=== PATIENT | female | born 1980 | race Caucasian/White ===

== ENCOUNTER 2019-04-23 12:44 | Emergency (ER) | payer OTHER, SELFPAY ==
[2019-04-08 13:14] VITALS: BMI 35.0
[2019-04-23 12:47] VITALS: BP 124/94; PULSE 91; RESP 17; TEMP 36.2; O2SAT 96; BMI 34.8
--- NOTE | 2019-04-23 13:39 | CT_ITS ---
STUDY: CT BRAIN WITHOUT CONTRAST REASON FOR EXAM: Female, 39 years old. Weakness, hx of ti x 1 month ago RADIATION DOSAGE (If Supplied By Facility): CTDIvol = ( 44.99 ) mGy, DLP = ( 762.36 ) mGycm TECHNIQUE: Transaxial CT imaging of the brain was performed without administration of intravenous contrast material. Individualized dose optimization techniques were used for this CT. COMPARISON: No relevant priors. FINDINGS: Normal soft tissue structures. Normal calvarium. Normal size ventricles and extra-axial spaces for the patient''s age. Normal white matter tracts of the cerebral hemispheres. Normal basal ganglia and thalami. Normal brainstem. Normal cerebellum. There is no intracranial hemorrhage. There are no findings of an acute ischemic infarction. Mucosal thickening of the ethmoid sinuses. CT/Brain/Head without Contrast IMPRESSION: Normal unenhanced CT scan of the brain. Mucosal thickening of the ethmoid sinuses. Electronically Signed: Maurizio King, at 14:51 EDT , Service support ,
--- NOTE | 2019-04-23 13:39 | EKG12_ITS ---
Test Reason : GENERAL ILLNESS Blood Pressure : / mmHG Vent. Rate : 073 BPM Atrial Rate : 073 BPM P-R Int : 132 ms QRS Dur : 084 ms QT Int : 380 ms P-R-T Axes : 037 001 039 degrees QTc Int : 418 ms Normal sinus rhythm Normal ECG Confirmed by CYN LUCIO, ADORE ([id number]), international editorial producer SHAYNA MORLEY ([id number]) on 04/25/2019 1:02:26 PM Referred By: EDDIE Confirmed By:KENNETH ADDISON MD
[2019-04-23 13:59] LABS: Absolute Lymphocyte Count 1.82 X10^3/uL (0.83-4.51); Absolute Neutrophil Count 3.3 X10^3/uL (2.0-7.7); Basophil# 0.04 X10^3/uL; Basophil% 0.7 % (0-1); Eosinophil# 0.28 X10^3/uL; Eosinophils% 4.8 % (0-5); Hematocrit 43.6 % (37-47); Hemoglobin 14.2 g/dL (12.0-15.0); Lymphocyte # 1.82 X10^3/ul (4.0); Lymphocyte % 31.5 % (19-41); Mean Corp Hgb Conc 32.6 g/dL (32-36); Mean Corpuscular Hgb 29.4 pg (27.0-32.0); Mean Corpuscular Volume 90.3 fL (81-99); Mean Platelet Vol. 9.6 fl (6.2-12.0); Monocyte# 0.36 X10^3/uL; Monocyte% 6.2 % (0-10); NRBC Flagged by Analyzer 0 % (0-5); Neutrophil # 3.26 X10^3/uL (2.7-7.7); Neutrophil % 56.5 % (47-70); Platelet Count 249 K/mm3 (150-450); RBC Distribution Width CV 12.4 % (11.6-14.6); RBC Distribution Width SD 40.7 fl (35.1-43.9); Red Blood Count 4.83 M/mm3 (4.2-5.4); White Blood Count 5.8 K/mm3 (4.4-11.0)
[2019-04-23 14:08] LABS: International Normalized Ratio 0.9; Prothrombin Time (Protime)PT. 12.1 SECONDS (11.7-14.9)
[2019-04-23 14:09] LABS: Internal QC Validated? YES +Cl - CLEAR BKGD; Pregnancy, Serum, hCG Quali. NEGATIVE Negative
[2019-04-23] MEDS: fentaNYL 100 MCG/2 ML Ampul 50 MCG IV (14:23)
[2019-04-23 14:24] LABS: Anion Gap 5 (5-15); BUN 13 mg/dL (7-18); Chloride 108 mmol/L (98-107); Creatinine, Serum 0.81 mg/dL (0.55-1.02); EST Glomerular Filtration Rate 84 mL/min (>60); Est Glom Filt Rate - Afr Amer 102 mL/min (>60); Estimated Creatinine Clearance 82.12 ml/min; Glucose 93 mg/dL (74-106); Potassium 3.7 mmol/L (3.5-5.1); Sodium Level 141 mmol/L (136-145); Thyroid Stim Hormone (TSH) 0.66 uIU/mL (0.358-3.74)
[2019-04-23 14:25] LABS: Bedside Glucose 93 mg/dL (70-110)
--- NOTE | 2019-04-23 14:52 | RAD_ITS ---
STUDY: X-RAY CHEST REASON FOR EXAM: Female, 39 years old. CHEST PAIN TECHNIQUE: Single AP portable view of the chest. COMPARISON: None. FINDINGS: EKG electrodes are seen. The lungs are clear and expanded. There is no demonstrated pleural abnormality. Normal size heart. Normal mediastinum and tulio. Normal visualized pulmonary arteries. Normal visualized aortic arch and descending thoracic aorta. Normal visualized thoracic spine. Normal visualized ribs, clavicles, and shoulders. There is no demonstrated abnormality of the visualized soft tissue structures of the upper abdomen. RAD/Chest 1 View IMPRESSION: Normal x-ray examination of the chest. Electronically Signed: Maurizio King, at 15:09 EDT , Service support ,
[2019-04-23 14:57] LABS: Partial Thromboplast Time 26.3 Seconds (24.1-36.2)
[2019-04-23 15:08] VITALS: BP 132/96; PULSE 65; RESP 16; O2SAT 95
--- NOTE | 2019-04-23 15:24 | ED.DCSUM_ITS ---
- ER Visit Summary Date of Service: 04/23/19 Chief Complaint: Pain History of Present Illness: The patient is a 39 F with head neck and jaw pain that started this morning. Nothing seemed to bring on or make it worse. Nothing seems to make it better. Associated with tingling in her bilateral hands. Denies any other neurologic symptoms, weakness, numbness, speech changes, vision changes, or facial droop. Patient has a history of TIA and takes aspirin daily. She had speech difficulties then. She is not having any of those issues today. History of asthma, hypertension, hyperlipidemia, pneumonia, headaches. Former smoker. Physical Examination: Afebrile and vital signs unremarkable. Head and neck inspection normal. HEENT exam normal. Cranial nerves grossly intact. Neck nontender. Heart regular. Lungs clear. Abdomen soft. Extremities nontender with no edema. Normal strength and sensation. Normal cerebellar testing. Test Results: EKG shows sinus rhythm at a rate of 73. CBC normal. BMP unremarkable. Coags, troponin, hCG unremarkable. TSH normal. Chest x-ray normal. CT brain normal. Emergency Department Course and Treatment: Patient has a history of TIA. She has no stroke symptoms today. No focal abnormalities. All of her symptoms are positive findings including pain and paresthesias. No weakness or numbness or other loss of function. I do not believe this is a stroke. Because of her history, I did obtain a work-up. This was reassuring. Vital signs are reassuring. Exam is reassuring. Patient will be discharged for outpatient follow-up. Return for any new or worsening issues. Treatment Plan: As above Disposition: Discharge Impression: Cephalgia This note was generated with [employer] dictation software. It may contain incorrect words, spelling, and punctuation that were not noted in review of the chart prior to signing ED Disposition - Plan for ED Patient: Referrals: Mason Gillis MD [Primary Care Provider] -
--- NOTE | 2019-04-23 15:27 | ED.DEP ---
ED Disposition - Plan for ED Patient: Instructions: HEADACHE, Unspecified Referrals: Mason Gillis MD [Primary Care Provider] -
[2019-04-23] MEDS: Ketorolac 30 MG/ML Syringe IV (15:58)
[2019-04-23 16:00] VITALS: BP 124/93; PULSE 53; RESP 12; O2SAT 977
== END 2019-04-23 16:13 | disposition home or self-care (01) ==
LOC: ED 13:49
PROVIDERS: Emergency Provider Emergency Medicine; PCP Internal Medicine
DX: R51 Headache (principal); I10 Essential (primary) hypertension; E78.5 Hyperlipidemia, unspecified; J45.909 Unspecified asthma, uncomplicated; Z79.82 Long term (current) use of aspirin; Z87.891 Personal history of nicotine dependence; Z86.73 Personal history of transient ischemic attack (TIA), and cerebral infarction without residual deficits
CPT/HCPCS: 70450; 71045; 80048; 82962; 84443; 84484; 84703; 85025; 85610; 85730; 93005; 96374; 96375; 99284; A4216

== ENCOUNTER → 2019-07-23 12:27 | Outpatient (CLI) | payer OTHER, SELFPAY ==
[2019-07-23 12:19] VITALS: BMI 34.8
--- NOTE | 2019-07-23 12:28 | RAD_ITS ---
STUDY: X-RAY - LUMBAR SPINE REASON FOR EXAM: Female, 39 years old. Pain, NKI, radiating into left hip, sometimes right TECHNIQUE: 5 view(s) of the lumbar spine were obtained including oblique views. COMPARISON: None FINDINGS: Normal lumbar lordosis. There is no substantial scoliosis. There is a normal alignment of the vertebrae. Normal vertebral bodies and endplates. Normal disc space heights. The soft tissue structures are unremarkable. RAD/L/S Spine Min 4 Views IMPRESSION: Normal x-ray examination of the lumbar spine. Electronically Signed: Maurizio King, at 12:54 EDT , Service support ,
== END ==
PROVIDERS: PCP Internal Medicine; Referring Provider Physician Assistant; Visit Provider Physician Assistant
DX: M54.5 Low back pain (principal)
CPT/HCPCS: 72110

== ENCOUNTER 2019-07-30 17:34 | Emergency (ER) | payer OTHER, SELFPAY ==
[2019-07-23 12:19] VITALS: BMI 34.8
[2019-07-30 17:35] VITALS: BP 143/91; PULSE 78; RESP 16; TEMP 36.3; O2SAT 97; BMI 34.3
[2019-07-30] MEDS: 0.9% Normal Saline 1,000 ML 1000 ML IV (18:09)
[2019-07-30 18:21] LABS: Absolute Lymphocyte Count 2.04 X10^3/uL (0.83-4.51); Absolute Neutrophil Count 3.5 X10^3/uL (2.0-7.7); Basophil# 0.03 X10^3/uL; Basophil% 0.5 % (0-1); Eosinophil# 0.29 X10^3/uL; Eosinophils% 4.6 % (0-5); Hemoglobin 12.6 g/dL (12.0-15.0); Lymphocyte # 2.04 X10^3/ul (4.0); Lymphocyte % 32.1 % (19-41); Mean Corp Hgb Conc 33.2 g/dL (32-36); Mean Corpuscular Hgb 30.6 pg (27.0-32.0); Mean Corpuscular Volume 92.2 fL (81-99); Mean Platelet Vol. 9.7 fl (6.2-12.0); Monocyte# 0.49 X10^3/uL; Monocyte% 7.7 % (0-10); NRBC Flagged by Analyzer 0 % (0-5); Neutrophil # 3.48 X10^3/uL (2.7-7.7); Neutrophil % 54.8 % (47-70); Platelet Count 248 K/mm3 (150-450); RBC Distribution Width CV 12.8 % (11.6-14.6); RBC Distribution Width SD 43.2 fl (35.1-43.9); Red Blood Count 4.12 M/mm3 (4.2-5.4); White Blood Count 6.4 K/mm3 (4.4-11.0)
[2019-07-30 18:36] LABS: ALB/GLOB Ratio 0.9 RATIO (0.9-2.4); AST(SGOT) 17 U/L (15-37); Alanine Aminotransfer ALT/SGPT 35 U/L (13-56); Albumin, Serum 3.3 g/dL (3.2-5.0); Alkaline Phosphatase 108 U/L (45-117); Anion Gap 4 (5-15); BUN 13 mg/dL (7-18); BUN/Creat Ratio 14.9 RATIO (10-20); Chloride 108 mmol/L (98-107); Creatinine, Serum 0.87 mg/dL (0.55-1.02); EST Glomerular Filtration Rate 78 mL/min (>60); Est Glom Filt Rate - Afr Amer 94 mL/min (>60); Estimated Creatinine Clearance 76.45 ml/min; Globulin 3.6 g/dL (2.2-4.2); Glucose 110 mg/dL (74-106); Lipase 96 U/L (73-393); Potassium 3.5 mmol/L (3.5-5.1); Protein, Total 6.9 g/dL (6.4-8.2); Sodium Level 141 mmol/L (136-145)
--- NOTE | 2019-07-30 18:52 | US_ITS ---
STUDY: ABDOMINAL ULTRASOUND - RIGHT UPPER QUADRANT REASON FOR VISIT: Female, 39 years old RUQ PAIN TECHNIQUE: Ultrasound evaluation of the right upper quadrant was performed with real-time and static carrillo-scale imaging. TECHNICAL QUALITY: Adequate. COMPARISON: None. FINDINGS: Liver: The liver measures 18.3 cm. There is increased echogenicity consistent with fatty infiltration. The bile ducts are within normal limits. There is hepatic color flow. The direction of portal flow is hepatopetal. There is no demonstrated mass lesion. Gallbladder: There is a contracted gallbladder. The gallbladder wall measures 4 mm. There is a positive sonographic Perez''s sign. There is no pericholecystic fluid. There are no gallstones. Common Bile Duct (C.B.D.): The common bile duct measures 4 mm. Pancreas: Normal size of the head, body and tail of the pancreas. There is normal echogenicity of the pancreas. There is no demonstrated pancreatic mass or cyst. Right Kidney: Normal size of the right kidney. The right kidney measures 10.5 x 5.2 x 4.4 cm. Normal renal cortex. The right cortex measures 1.8 cm. There is no demonstrated renal mass or cyst. There is no right hydronephrosis. US/Gallbladder IMPRESSION: Contracted gallbladder. There is no evidence of cholelithiasis or pericholecystic fluid. A positive Perez sign was elicited as per avionics systems technician. There is increased hepatic echogenicity suggestive of steatosis. Electronically Signed: Ger Taylor MD at 19:33 EDT , Service support ,
--- NOTE | 2019-07-30 18:55 | ED.VIS.GEN ---
History of Present Illness Chief Complaint: Abd Pain Detail of Chief Complaint: Upper quadrant abdominal pain and diarrhea Informant: Patient Onset: Days Context: Sudden Onset Timing: Continuous Quality: Right upper quadrant pain with pleuritic component and diarrhea Location: Right upper quadrant Current Severity: Mild Maximum Severity: Moderate Worsened by: Breathing Relieved by: Nothing Associated Symptoms: Diarrhea Narrative: Patient 39-year-old woman who presents with right upper quadrant pain that radiates into her back. Equivocal intolerance to greasy or fried foods. She states she had ultrasound of her gallbladder 3 years ago; however, the gallbladder was contracted and ultrasound was inconclusive. She reports 5 loose stools on Sunday. She had several loose stools since Sunday. No blood or mucus. No history of inflammatory bowel disorder. There is a family history of ulcerative colitis. She does report nausea without vomiting. She denies cough, shortness of breath or difficulty breathing. She denies history of VTE. She denies leg pain, swelling discoloration. She denies dysuria, frequency, urgency or hematuria. She denies upper respiratory symptoms. She denies fever or chills. Prior similar symptoms: Yes Recent Illness/Hospitalization: No - Past Medical History (1) Allergies Status: Chronic (2) Asthma Status: Chronic (3) Cervicogenic migraine Status: Chronic (4) High blood pressure Status: Chronic (5) High cholesterol Status: Chronic (6) Hormone deficiency Status: Chronic (7) Vitamin D deficiency Status: Chronic Past Medical History - Allergies and Home Meds Allergies/Adverse Reactions: Allergies No Known Allergies Allergy (Verified 07/23/19 12:12) Primary Care Physician: Mason Gillis MD [Primary Care Provider] - Prior records reviewed: Yes Surgical History: noncontributory Lives: Spouse/ Significant Other, With Family Smoking Status: Former smoker Alcohol: Rare Drugs: None Review of Systems General: Denies: Chills, Fever, Sweats Eyes: Denies: Visual changes - bilaterally, Blurred Vision - bilaterally ENT: Denies: Bilateral ear pain, Rhinorrhea, Sore throat Cardiovascular: Denies: Chest pain, Palpitations Respiratory: Denies: Dyspnea, Cough, Dyspnea on exertion Gastrointestinal: Reports: Abdominal pain, Nausea, Diarrhea. Denies: Vomiting, Constipation, Melena, Hematochezia, -, - Genitourinary: Denies: Dysuria, Hematuria, Frequency Musculoskeletal: Reports: Back pain. Denies: Myalgias, Arthralgias, Neck pain, Swelling, Extremity Pain Skin: Denies: Rash, Wounds Neurological: Denies: Headache, Weakness, Numbness Hematologic: Denies: Easy bruising, Easy bleeding Physical Exam Vital Signs/Narrative: Vital Signs Temp Pulse Resp BP Pulse Ox 07/30/19 17:35 97.3 F L 78 16 143/91 H 97 Inital Vital Signs reviewed: Yes General: Well nourished, Well developed, No Acute Distress Head: Normocephalic, Atraumatic Eyes: Perrl, EOMI ENT: Moist mucous membranes, No rhinorrhea Neck: Supple, Nontender Cardiovascular: Regular rate, Regular rhythm, No murmurs Respiratory: No distress, CTA bilaterally, Chest nontender Abdomen: Soft, Nondistended, Normal bowel sounds, No masses, Tender, Guarding, Perez's sign Rectal: Deferred Back: Nontender, Normal Inspection. Negative for: CVA tenderness Extremities: Nontender, No edema, - - There is no asymmetry, swelling, discoloration, leg vein distention, palpable cords or tenderness along the distribution of the deep venous system. Skin: Normal color, No rash Neurological: Alert, Oriented x3, Cranial nerves II-XII grossly intact, Normal Strength, Normal Sensation Psychological: Normal affect, Normal Mood Diagnostic/Tx/Re-eval Impressions Gallbladder Ultrasound 07/30/19 18:52 IMPRESSION: Contracted gallbladder. There is no evidence of cholelithiasis or pericholecystic fluid. A positive Perez sign was elicited as per food equipment service technician. There is increased hepatic echogenicity suggestive of steatosis. Electronically Signed: Ger Taylor MD at 19:33 EDT , Service support , 07/30/19 18:52 US Gallbladder [Gallbladder] [US] Stat Laboratory Results 07/30/19 07/30/19 18:05 18:05 WBC 6.4 RBC 4.12 L Hgb 12.6 Hct 38.0 MCV 92.2 MCH 30.6 MCHC 33.2 RDW Std Deviation 43.2 RDW Coeff of Daniel 12.8 Plt Count 248 MPV 9.7 Immature Gran % (Auto) 0.300 Neut % (Auto) 54.8 Lymph % (Auto) 32.1 [place] % (Auto) 7.7 Eos % (Auto) 4.6 Baso % (Auto) 0.5 Absolute Neuts (auto) 3.5 Absolute Lymphs (auto) 2.04 Nucleated RBC % 0 Sodium 141 Potassium 3.5 Chloride 108 H Carbon Dioxide 29.0 Anion Gap 4 L BUN 13 Creatinine 0.87 Estim Creat Clear Calc 76.45 Est GFR (MDRD) Af Amer 94 Est GFR (MDRD) Non-Af 78 BUN/Creatinine Ratio 14.9 Glucose 110 H Calcium 9.0 Total Bilirubin 0.30 AST 17 ALT 35 Alkaline Phosphatase 108 Total Protein 6.9 Albumin 3.3 Globulin 3.6 Albumin/Globulin Ratio 0.9 Lipase 96 Patient was informed of her results. She is not had any diarrhea during her stay. Plan is to discharge with appropriate home-going instructions. - Medical Decision Making Right upper quadrant pain radiating to the back differential diagnosis would include biliary colic, cholelithiasis, cholecystitis, obstructing ureteral stone. With complaint of diarrhea need to rule out infectious etiology versus inflammatory etiology. Patient was informed of her lab results. On reexamination she is still has significant tenderness right upper quadrant with a clinical Perez sign. Therefore will obtain ultrasound the gallbladder. Patient was ordered pain medicine, which she declined. ED Disposition - Plan for ED Patient: Disposition: Home or Assisted Living Diagnosis: Right upper quadrant abdominal pain, Diarrhea, Mild dehydration Instructions: ED Vomiting and Diarrhea Nonspecific Adult Referrals: Mason Gillis MD [Primary Care Provider] - 3-5 Days if not improving
[2019-07-30 20:09] VITALS: BP 144/81; PULSE 60; RESP 17; O2SAT 97
== END 2019-07-30 20:09 | disposition home or self-care (01) ==
PROVIDERS: Emergency Provider Emergency Medicine; PCP Internal Medicine
DX: R10.11 Right upper quadrant pain (principal); R19.7 Diarrhea, unspecified; E86.0 Dehydration; I10 Essential (primary) hypertension; J45.909 Unspecified asthma, uncomplicated; Z87.891 Personal history of nicotine dependence
CPT/HCPCS: 76705; 80053; 83690; 85025; 99283

== ENCOUNTER → 2019-09-05 | Outpatient (CLI) | payer OTHER, SELFPAY | END | disposition home or self-care (01) | LOC: LABSPEC 17:36 | PROVIDERS: PCP Internal Medicine; Referring Provider Physician Assistant Surgical; Visit Provider Physician Assistant Surgical | DX: Z20.828 Contact with and (suspected) exposure to other viral communicable diseases (principal) | CPT/HCPCS: 87635; 94799; U0003 ==

== ENCOUNTER → 2022-08-14 | Outpatient (CLI) | payer OTHER, SELFPAY ==
[2022-08-14 12:26] LABS: Absolute Lymphocyte Count 2.18 X10^3/uL (0.83-4.51); Absolute Neutrophil Count 4.2 X10^3/uL (2.0-7.7); Basophil# 0.05 X10^3/uL; Basophil% 0.7 % (0-1); Eosinophil# 0.28 X10^3/uL; Eosinophils% 3.9 % (0-5); Hematocrit 40.2 % (37-47); Lymphocyte # 2.18 X10^3/ul (0.83-4.51); Lymphocyte % 30.2 % (19-41); Mean Corp Hgb Conc 32.3 g/dL (32-36); Mean Corpuscular Hgb 30.4 pg (27.0-32.0); Mean Corpuscular Volume 93.9 fL (81-99); Mean Platelet Vol. 11.5 fl (6.2-12.0); Monocyte# 0.51 X10^3/uL; Monocyte% 7.1 % (0-10); NRBC Flagged by Analyzer 0 % (0-5); Neutrophil # 4.18 X10^3/uL (2.7-7.7); Neutrophil % 57.8 % (47-70); Platelet Count 275 K/mm3 (150-450); RBC Distribution Width CV 13.1 % (11.6-14.6); Red Blood Count 4.28 M/mm3 (4.2-5.4); White Blood Count 7.2 K/mm3 (4.4-11.0)
[2022-08-14 12:44] LABS: ALB/GLOB Ratio 1.3 RATIO (0.9-2.4); AST(SGOT) 16 U/L (15-37); Alanine Aminotransfer ALT/SGPT 21 U/L (13-56); Albumin, Serum 3.9 g/dL (3.2-5.0); Alkaline Phosphatase 73 U/L (45-117); Anion Gap 5 (5-15); BUN 10 mg/dL (7-18); BUN/Creat Ratio 10.4 RATIO (10-20); Calcium,Total 9.3 mg/dL (8.5-10.1); Chloride 109 mmol/L (98-107); Creatinine, Serum 0.96 mg/dL (0.55-1.02); EST Glomerular Filtration Rate 69 mL/min (>60); Est Glom Filt Rate - Afr Amer 83 mL/min (>60); Globulin 3.1 g/dL (2.2-4.2); Glucose 92 mg/dL (74-106); Potassium 3.3 mmol/L (3.5-5.1); Sodium Level 142 mmol/L (136-145); Troponin-I HS 4 pg/mL (3.0-54.0)
== END | disposition home or self-care (01) ==
LOC: BIMLAB 10:05
PROVIDERS: PCP Internal Medicine; Referring Provider Internal Medicine; Visit Provider Internal Medicine
DX: R10.10 Upper abdominal pain, unspecified (principal)
CPT/HCPCS: 36415; 80053; 84484; 85025

== ENCOUNTER → 2022-08-22 | Outpatient (CLI) | payer OTHER, SELFPAY ==
--- NOTE | 2022-08-22 08:39 | US_ITS ---
STUDY: ABDOMINAL ULTRASOUND - RIGHT UPPER QUADRANT REASON FOR VISIT: Female, 42 years old abdominal pain, positive Perez''s sign on exam TECHNIQUE: Ultrasound evaluation of the right upper quadrant was performed with real-time and static carrillo-scale imaging. TECHNICAL QUALITY: Adequate. COMPARISON: Comparison is made with prior study dated July 30, 2019. FINDINGS: Liver: The liver measures 16 cm. There is increased echogenicity consistent with fatty infiltration. The bile ducts are within normal limits. There is hepatic color flow. The direction of portal flow is hepatopetal. There is no demonstrated mass lesion. Gallbladder: Normal distended gallbladder. The gallbladder wall measures 1.5 mm. There is a negative sonographic Perez''s sign. There is no pericholecystic fluid. There are no gallstones. Common Bile Duct (C.B.D.): The common bile duct measures 3.6 mm. Pancreas: Normal size of the head, body of the pancreas. The tail portion is obscured due to overlying bowel gas. There is normal echogenicity of the pancreas. There is no demonstrated pancreatic mass or cyst. Right Kidney: Normal size of the right kidney. The right kidney measures 10.4 cm x 5.7 cm x 4.9 cm. Normal renal cortex. The right cortex measures 1.8 cm. There is no demonstrated renal mass or cyst. There is no right hydronephrosis. US/Liver IMPRESSION: Fatty infiltration of the liver. Electronically Signed: Maurizio King MD at 10:16 EDT ,
== END | disposition home or self-care (01) ==
PROVIDERS: PCP Internal Medicine; Referring Provider Internal Medicine; Visit Provider Internal Medicine
DX: R10.10 Upper abdominal pain, unspecified (principal)
CPT/HCPCS: 76705

== ENCOUNTER 2022-10-02 09:20 | Day surgery (SDC) | payer OTHER, SELFPAY ==
[2022-10-02 09:56] VITALS: BP 140/91; PULSE 77; RESP 16; TEMP 36.8; O2SAT 97; BMI 28.6
--- NOTE | 2022-10-02 10:06 | H&P.OPEN ---
HPI - General General Date of Service: 10/02/22 HPI Narrative SARAN BARILLAS, is a 42 F who presents patient states her reflux did improve she noticed that one of the flavors that she was vaping caused the reflux. Patient did take Carafate for a month states that the symptoms are better not completely gone still on the pantoprazole. Patient does take Dulcolax about every other day or so for the constipation. She also did check her fiber in her diet and it was low she does have the fiber Gummies ordered. Patient does drink plenty of water. office visit 08/29/22 HPI HPI: 42-year-old female presents due to abdominal pain and constipation. Patient states back in March she did 3 doses of Ozempic patient did have lots of nausea and vomiting with this. Ever since patient states that she is had abdominal pain, and periumbilical to epigastric left upper quadrant greater than right upper quadrant. Patient has tried to change her diet avoiding gluten with no change. Patient denies any change in the pain with after eating or during eating. Patient states she is really not that hungry but does eat 2 meals a day. Patient states that she has a history of constipation but she can go about a week without having a bowel movement even though she is taking a daily natural laxative. Patient denies reflux in her esophagus. Patient is nauseous in the morning before ever eating. Patient also states she lost 40 pounds unintentional through this. Likely due to nausea and vomiting abdominal pain. [facility] Medical History (Updated 09/28/22 @ 10:50 by Greer Pagan) Allergies Anemia Anxiety Asthma Back pain Back problem Bloody stool Chronic constipation Fatigue Fatty liver Former smoker Frequent headaches Gastric reflux High blood pressure High cholesterol Hormone deficiency Hypertension Injury of head and neck Limb weakness migrainious stroke Pneumonia PONV (postoperative nausea and vomiting) Severe headache Shoulder pain SOB (shortness of breath) TIA (transient ischemic attack) Vitamin D deficiency Home Medications amlodipine 5 mg tablet 5 mg PO DAILY #90 tabs 08/22/21 [Rx Last Taken Unknown] montelukast 10 mg tablet (Singulair) 10 mg PO DAILY #90 tabs 08/22/21 [Rx Last Taken Unknown] ondansetron 4 mg disintegrating tablet 4 mg PO Q8H PRN nausea and vomiting #20 tabs 08/14/22 [Rx Last Taken Unknown] potassium chloride 20 mEq tablet,extended release(part/cryst) 40 meq (2 x 20 mEq) PO ONCE #2 tabs 08/14/22 [Rx Last Taken Unknown] sucralfate 1 gram tablet 1 g PO QACHS #56 tabs 08/29/22 [Rx Last Taken Unknown] albuterol sulfate 90 mcg/actuation aerosol inhaler (ProAir HFA) 1 - 2 puff inhalation Q6H PRN shortness of breath or wheezing #8.5 grams 08/30/22 [Rx Last Taken Unknown] fluticasone 500 mcg-salmeterol 50 mcg/dose blistr powdr for inhalation (Advair Diskus) 1 inh inhalation BID #60 ea 08/30/22 [Rx Last Taken 10/02/22] cyclobenzaprine 10 mg tablet 5 - 10 mg (0.5 - 1 x 10 mg) PO TID PRN muscle spasm #30 tabs 09/08/22 [Rx Last Taken Unknown] duloxetine 40 mg capsule,delayed release 40 mg PO DAILY #30 caps 09/12/22 [Rx Last Taken Unknown] pantoprazole 40 mg tablet,delayed release (Protonix) 40 mg PO QHS 09/28/22 [History Last Taken Unknown] Allergy/AdvReac Type Severity Reaction Status Date / Time No Known Allergies Allergy Verified 09/28/22 10:36 Family History Father Alcoholism Liver disease Uncle Alcoholism Mother Anemia Anesthesia complication Anxiety Depression Heart disease Hypertension Liver disease Thyroid disorder Aunt AUTO M Autoimmune disease Breast cancer Diabetes Grandmother Anemia Anxiety Blood clot in vein Myocardial infarction Heart disease Hypertension High cholesterol CVA (cerebral vascular accident) Grandfather Anesthesia complication Angina pectoris Myocardial infarction Heart disease Hypertension High cholesterol Skin cancer Other Alzheimer's dementia Cirrhosis of liver Liver cancer Surgical History history Lap abdomen History of appendectomy History of History of hysterectomy History of tonsillectomy History of tubal ligation Social History Smoking Status: Former smoker alcohol intake: current Alcohol type: beer and hard liquor details: socially substance use type: does not use what type of physical activity do you participate in: other details: Cardio frequency: 3-4 times per week Past Medical/Surgical History Planned Operation Planned Operative Procedure/s: COLONOSCOPY, EGD Previous Hospitalizations/Surgeries HX Hospitalizations: No Any Problems With Anesthesia: Yes (PONV AFTER HYSTER) You/Your Family Experience Fever (Hyperthermia) With Anes: No Cholinesterase deficiency: No Cardiovascular Hx Hypertension: Yes Respiratory Hx Asthma: Yes Hx Sleep Apnea: No Hx Respiratory Tract Infection/Cold (presently): No Do You Snore Loudly (louder than talking or can be heard): No Do You Often Feel Tired/ Fatigued/ Sleepy Dring Daytime?: No Has Anyone Observed You Stop Breathing During Sleep?: No Result (for STOP score): Negative Smoking Status: Former smoker Neurological Hx Transient Ischemic Attacks (TIA): Yes Does patient have nerve stimulator: No Reproduction : No Miscellaneous Recent Exposure to Contagious Disease: No Allergies No Known Allergies Allergy (Verified 09/28/22 10:36) Discharge Is Pt Admitted From a Long-Term, or a Penitentiary: No Who Could Help: FRIEND After D/C, Where Do you Plan to Go: Return Home Vital Signs Vital Signs Vital Signs: 10/02/22 09:56 10/02/22 09:56 Temperature 98.3 F Temperature Source Temporal Pulse Rate 77 Respiratory Rate 16 Respiratory Pattern Normal Blood Pressure 140/91 H Blood Pressure Mean 107 Blood Pressure Source Monitor Blood Pressure Position Semi-Fowlers Blood Pressure Location Right Arm Pulse Ox 97 Oxygen Delivery Method Room Air Weight Weight: 167 lb 1.766 oz Body Mass Index (BMI) 28.6 Physical Exam Const alert, oriented x3 and no apparent distress HEENT normocephalic and head/scalp atraumatic Resp normal respiratory effort Cardio regular rate GI soft to palpation and non-tender; Negative for non-distended Palpation: Negative for guarding Extremity no clubbing, cyanosis or edema Neuro CN's II-XII intact bilaterally Psych mental status grossly normal Assessment & Plan Assessment/Plan (1) LUQ abdominal pain: (2) Epigastric pain: (3) Constipation: (4) Weight loss, non-intentional: Surgery Risks - Colonoscopy I discussed with the patient the risks of the procedure: Yes Risks Include but are not Limited To: Risks include but are not limited to: Bleeding, perforation requiring further surgery, inability to complete colonoscopy requiring barium enema.
[2022-10-02] MEDS: Lactated Ringers 1,000 ML 15 ML IV (10:08)
--- NOTE | 2022-10-02 10:30 | EGD_PTH ---
PATIENT: SARAN BARILLAS LOC: EN U#:[id number] AGE/SX: 42/F ROOM: RE10/02/[address]: Dr. Jerrica Alvarado MD : 1980 BED: DIS: 10/02/2022 SPEC #: [id number] RECD: 10/02/22 12:59 STATUS: JESSIKA REDaniel #: [id number] NATHAN: 10/02/22 10:[address]: Jerrica Alvarado DEPT: SURGICAL PATHOLOGY RECD BY: Ania Pack ENTERED: 10/02/22 13:22 SP TYPE: EGD BIOPSY OT DR: Dr. Mason Gillis MD Tissues: A - Gastric mucous membrane B - Esophagus, NOS Procedures: Special Stain Group II Surgery Specimen Level IV Alcian Blue/PAS (control) HEADER OPERATION: Colonoscopy, EGD with biopsy PRE-OP DIAGNOSIS: LUQ pain, epigastric pain, constipation, weight loss TISSUE SUBMITTED: A - Antrum biopsy for H. pylori and histology, B - Gastroesophageal junction biopsy MICROSCOPIC DIAGNOSIS A. Gastric antrum, biopsy: Chronic gastritis. See comment. B. Gastroesophageal junction, biopsy: Chronic inflammation. Focal changes of reflux. No evidence of goblet cell metaplasia. See comment. KALLI:pat 10/03/2022 COMMENT A. The results of immunohistochemistry for Helicobacter pylori will be reported separately ([id number]). B. Alcian blue/PAS stain with matched control supports the above diagnosis. MICROSCOPIC DESCRIPTION Slides are reviewed. GROSS DESCRIPTION A - Received in fixative is one container labeled with the patient's name and designated antrum. The specimen consists of two irregular fragments of light mohan soft tissue that in aggregate measure 0.6 x 0.3 x 0.1 cm. The specimen is totally submitted in one cassette. B - Received in fixative is one container labeled with the patient's name and designated GE junction. The specimen consists of one irregular fragment of light mohan soft tissue that measures 0.5 x 0.3 x 0.1 cm. The specimen is totally submitted in one cassette. / AM:pat 10/02/2022 TC:3 CPT: 98434 x2, 54846
--- NOTE | 2022-10-02 10:30 | IMM_PTH ---
PATIENT: SARAN BARILLAS LOC: EN U#:[id number] AGE/SX: 42/F ROOM: RE10/02/[address]: Dr. Jerrica Alvarado MD : 1980 BED: DIS: 10/02/2022 SPEC #: [id number] RECD: 10/02/22 13:53 STATUS: JESSIKA REQ #: [id number] NATHAN: 10/02/22 10:[address]: Jerrica Alvarado DEPT: IMMUNOHISTOCHEMISTRY RECD BY: Asya Bradford ENTERED: 10/02/22 13:54 SP TYPE: IMMUNO OTHR DR: Dr. Mason Gillis MD Tissues: A - Stomach, NOS Procedures: H Pylori (initial) PHYSICIAN & INSTITUTION [place] [id number] SPECIMEN INFORMATION: Tissue Source: A - Antrum Clinical Info: LUQ pain, epigastric pain, constipation, weight loss Specimen Number: [id number] CPT code: 63114 METHODOLOGY: Deparaffinized sections of prefer/formalin-fixed tissue or PAP/DQ stained slides are incubated with monoclonal/polyclonal antibodies/oligonucleotide probes. Localization is made via biotin free immunoperoxidase method. Appropriate controls are performed and reacted as expected. Results on target cell population are indicated in the following table: RESULTS: ANTIBODY / CLONE RESULT Block A H Pylori (polyclonal) negative These tests were developed and their performance characteristics determined by [facility]. They may not have been cleared or approved by the U.S. Food and Drug Administration. The FDA has determined that such clearance or approval is not necessary. The above immunohistochemical/dualISH markers are ordered and reviewed by the Pathologist. INTERPRETATION: A. Antrum, biopsy: Negative for Helicobacter pylori organisms. AM:pat 10/03/2022
[2022-10-02 11:04] VITALS: BP 140/91; BP 144/123; PULSE 90; RESP 16; TEMP 36.1; O2SAT 99
--- NOTE | 2022-10-02 11:07 | OP.EGD_ITS ---
Patient Name: Sissy Phillips Procedure Date: 10/02/2022 10:18 AM Date of : 1980 Age: 42 Procedure: Upper GI endoscopy Indications: Heartburn Providers: Jerrica Alvarado MD Medicines: Monitored Anesthesia Care Patient Profile: This is a 42 year old female. Complications: No immediate complications. Procedure: Pre-Anesthesia Assessment: - Prior to the procedure, a History and Physical was performed, and patient medications and allergies were reviewed. The patient's tolerance of previous anesthesia was also reviewed. The risks and benefits of the procedure and the sedation options and risks were discussed with the patient. All questions were answered, and informed consent was obtained. Prior Anticoagulants: The patient has taken no anticoagulant or antiplatelet agents. ASA Grade Assessment: Per anesthesia. After reviewing the risks and benefits, the patient was deemed in satisfactory condition to undergo the procedure. After obtaining informed consent, the endoscope was passed under direct vision. Throughout the procedure, the patient's blood pressure, pulse, and oxygen saturations were monitored continuously. The Colonoscope was introduced through the mouth, and advanced to the second part of duodenum. The upper GI endoscopy was accomplished without difficulty. The patient tolerated the procedure well. Scope In: 10:34:41 AM Scope Out: 10:40:02 AM Total Procedure Duration Time 0 hours 5 minutes 21 seconds Findings: The Z-line was irregular and was found 35 cm from the incisors. Biopsies were taken with a cold forceps for histology. The cardia and gastric fundus were normal on retroflexion. Moderately erythematous mucosa without bleeding was found in the gastric antrum. Biopsies were taken with a cold forceps for histology. Biopsies were taken with a cold forceps for Helicobacter pylori cultures. The examined duodenum was normal. Impression: - Z-line irregular, 35 cm from the incisors. Biopsied. - Erythematous mucosa in the antrum. Biopsied. - Normal examined duodenum. Recommendation: - Await pathology results. - Discharge patient to home. - Resume previous diet. - Continue present medications. Procedure Code(s): --- Professional --- 08209, PT, Esophagogastroduodenoscopy, flexible, transoral; with biopsy, single or multiple Diagnosis Code(s): --- Professional --- K22.89, Other specified disease of esophagus K31.89, Other diseases of stomach and duodenum R12, Heartburn CPT copyright 2021 [employer]. All rights reserved. The codes documented in this report are preliminary and upon building services supervisor review may be revised to meet current compliance requirements. MD Jerrica Liz MD 10/02/2022 11:06:47 AM This report has been signed electronically. Number of Addenda: 0 Note Initiated On: 10/02/2022 10:18 AM
--- NOTE | 2022-10-02 11:07 | OP.CCLET_ITS ---
10/02/2022 Mason Gillis MD [address] [place] [address] Re : Upper GI endoscopy procedure for Sissy Phillips Dear Dr. Gillis This procedure was performed on Sunday, October 02, 2022. My impressions and recommendations are as follows: Impressions : - Z-line irregular, 35 cm from the incisors. Biopsied. - Erythematous mucosa in the antrum. Biopsied. - Normal examined duodenum. Recommendations : - Await pathology results. - Discharge patient to home. - Resume previous diet. - Continue present medications. My findings are described in the full procedure note, which is enclosed. If I can be of further assistance, please feel free to contact me at Doctor phone number(s): , Work: . Sincerely, MD Jerrica Liz MD 10/02/2022 11:06:47 AM This report has been signed electronically.
[2022-10-02 11:10] VITALS: BP 118/83; BP 140/91; PULSE 67; RESP 16; O2SAT 98
[2022-10-02 11:15] VITALS: BP 122/76; BP 140/91; PULSE 58; RESP 16; O2SAT 100
--- NOTE | 2022-10-02 11:17 | OP.COLON_ITS ---
Patient Name: Sissy Phillips Procedure Date: 10/02/2022 10:40 AM Date of : 1980 Age: 42 Procedure: Colonoscopy Indications: Epigastric abdominal pain, Abdominal pain in the left upper quadrant, Constipation Providers: Jerrica Alvarado MD Medicines: Monitored Anesthesia Care Patient Profile: This is a 42 year old female. Last Colonoscopy: none. The patient's first colonoscopy is today. Complications: No immediate complications. Procedure: Pre-Anesthesia Assessment: - Prior to the procedure, a History and Physical was performed, and patient medications and allergies were reviewed. The patient's tolerance of previous anesthesia was also reviewed. The risks and benefits of the procedure and the sedation options and risks were discussed with the patient. All questions were answered, and informed consent was obtained. Prior Anticoagulants: The patient has taken no anticoagulant or antiplatelet agents. ASA Grade Assessment: Per anesthesia. After reviewing the risks and benefits, the patient was deemed in satisfactory condition to undergo the procedure. After I obtained informed consent, the scope was passed under direct vision. Throughout the procedure, the patient's blood pressure, pulse, and oxygen saturations were monitored continuously. The Colonoscope was introduced through the anus and advanced to the cecum, identified by the ileocecal valve. The colonoscopy was performed without difficulty. The patient tolerated the procedure well. The quality of the bowel preparation was good. Scope In: 10:41:14 AM Scope Withdrawal Time 0 hours 8 minutes 22 seconds Scope Out: 10:59:28 AM Total Procedure Duration Time 0 hours 18 minutes 14 seconds Findings: Non-bleeding internal hemorrhoids were found during retroflexion. The hemorrhoids were Grade I (internal hemorrhoids that do not prolapse). The entire examined colon appeared normal. Impression: - Non-bleeding internal hemorrhoids. - The entire examined colon is normal. - No specimens collected. Recommendation: - Discharge patient to home. - Resume previous diet. - Continue present medications. - Repeat colonoscopy in 10 years for screening purposes. Procedure Code(s): --- Professional --- 11560, Colonoscopy, flexible; diagnostic, including collection of specimen(s) by brushing or washing, when performed (separate procedure) Diagnosis Code(s): --- Professional --- K64.0, First degree hemorrhoids R10.13, Epigastric pain R10.12, Left upper quadrant pain K59.00, Constipation, unspecified CPT copyright 2021 [employer]. All rights reserved. The codes documented in this report are preliminary and upon aluminum hydroxide process operator review may be revised to meet current compliance requirements. MD Jerrica Liz MD 10/02/2022 11:17:13 AM This report has been signed electronically. Number of Addenda: 0 Note Initiated On: 10/02/2022 10:40 AM
--- NOTE | 2022-10-02 11:17 | OP.CCLET_ITS ---
10/02/2022 Masno Gillis MD [address] [place] [address] [place] [address] Re : Colonoscopy procedure for Sissy Phillips Dear Dr. Gillis This procedure was performed on Sunday, October 02, 2022. My impressions and recommendations are as follows: Impressions : - Non-bleeding internal hemorrhoids. - The entire examined colon is normal. - No specimens collected. Recommendations : - Discharge patient to home. - Resume previous diet. - Continue present medications. - Repeat colonoscopy in 10 years for screening purposes. My findings are described in the full procedure note, which is enclosed. If I can be of further assistance, please feel free to contact me at Doctor phone number(s): , Work: . Sincerely, MD Jerrica Liz MD 10/02/2022 11:17:13 AM This report has been signed electronically.
[2022-10-02 11:19] VITALS: BP 118/82; BP 140/91; PULSE 73; RESP 16; TEMP 36.6; O2SAT 100
[2022-10-02 11:29] VITALS: BP 140/91
== END 2022-10-02 11:46 | disposition home or self-care (01) ==
LOC: EN 09:21 → AC 09:47
PROVIDERS: PCP Internal Medicine; Referring Provider Internal Medicine; Visit Provider Surgery
PROC: 0DJD8ZZ Inspection of Lower Intestinal Tract, Via Natural or Artificial Opening Endoscopic (ICD-10-PCS; CPT 45378; principal; 2022-10-02 10:25)
DX: K22.89 Other specified disease of esophagus (principal); K29.50 Unspecified chronic gastritis without bleeding; I10 Essential (primary) hypertension; K64.0 First degree hemorrhoids; K59.09 Other constipation; K21.9 Gastro-esophageal reflux disease without esophagitis; R63.4 Abnormal weight loss; Z68.28 Body mass index [BMI] 28.0-28.9, adult; Z90.49 Acquired absence of other specified parts of digestive tract; Z79.899 Other long term (current) drug therapy; Z86.73 Personal history of transient ischemic attack (TIA), and cerebral infarction without residual deficits; Z87.891 Personal history of nicotine dependence
CPT/HCPCS: 43239; 45378; 88305; 88313; 88342; J7120; J2405

== ENCOUNTER → 2023-03-16 | Outpatient (CLI) | payer OTHER, SELFPAY ==
[2023-03-16 15:50] LABS: Vitamin D,25 Hydroxy 20.6 ng/mL
[2023-03-16 16:00] LABS: Hemoglobin A1c 5.4 % (3.8-5.6)
[2023-03-16 16:03] LABS: ALB/GLOB Ratio 1.1 RATIO (0.9-2.4); AST(SGOT) 18 U/L (15-37); Alanine Aminotransfer ALT/SGPT 31 U/L (13-56); Alkaline Phosphatase 86 U/L (45-117); Anion Gap 1 (5-15); BUN 17 mg/dL (7-18); BUN/Creat Ratio 24.5 RATIO (10-20); Calcium,Total 9.1 mg/dL (8.5-10.1); Chloride 108 mmol/L (98-107); Cholesterol 270 mg/dL (200); Creatinine, Serum 0.69 mg/dL (0.55-1.02); EST Glomerular Filtration Rate 99 mL/min (>60); Est Glom Filt Rate - Afr Amer 120 mL/min (>60); Globulin 3.5 g/dL (2.2-4.2); Glucose 96 mg/dL (74-106); High Density Lipoprotein 72 mg/dL; Potassium 3.9 mmol/L (3.5-5.1); Protein, Total 7.5 g/dL (6.4-8.2); Sodium Level 137 mmol/L (136-145); T4 Free Direct 1.04 ng/dL (0.76-1.46); Thyroid Stim Hormone (TSH) 1.41 uIU/mL (0.358-3.74); Triglycerides 157 mg/dL; Very Low Density Lipoprotein 31 mg/dL (5-40)
== END | disposition home or self-care (01) ==
LOC: BIMLAB 14:05
PROVIDERS: PCP Internal Medicine; Referring Provider Nurse Practitioner; Visit Provider Nurse Practitioner
DX: I10 Essential (primary) hypertension (principal); E78.00 Pure hypercholesterolemia, unspecified; E55.9 Vitamin D deficiency, unspecified
CPT/HCPCS: 36415; 80053; 80061; 82306; 83036; 84439; 84443